=== PATIENT | male | born 1965 ===

== ENCOUNTER → 2020-04-16 | Day surgery (SDC) | payer OTHER ==
[~2020-04-16] MED LIST: BUSPIRONE HCL15 MG PO; HYZAAR 50-12.51 EACH PO; PROTONIX40 MG PO; RESTORIL30 M1 PO; SEROQUEL25 MG PO; TAMS0.4C PO; ULTRAM50 MG PO; ZOLOFT100 MG PO
== END | disposition home or self-care (01) ==
LOC: ADM 04-12 11:45 → CIR.AMB 07:10 → ADM 11:45
PROVIDERS: ATTEND Urology
DX: N20.1 Calculus of ureter (principal)